=== PATIENT | male | born 1970 | race Caucasian/White ===

== ENCOUNTER 2016-11-06 09:31 | Day surgery (SDC) | payer OTHER ==
[2016-11-06] VITALS (11 sets, daily range): BP systolic 115–138; BP diastolic 67–86; PULSE 65–81; RESP 12–16; O2SAT 92–99
[~2016-11-06] VITALS: Ht 188 cm; Wt 107.1 kg
[2016-11-06] MEDS: Lactated Ringer's 1,000 ML IV SCH ×2 (05:32→11:05)
[~2016-11-06 09:31] MED LIST: CeFAZolin 2 Gm/50 mL D5W IV Premix IV ONE
[2016-11-06] MEDS ORDERED: MetoCLOpramide 5 mg/mL 2 mL Inj ONE (09:32)
[2016-11-06] MEDS ORDERED: Propofol 10,000 mCg/mL 20 mL Inj ONE (09:32)
[2016-11-06] MEDS ORDERED: fentaNYL-PF 50 mCg/mL 2 mL Inj ONE (09:32)
[2016-11-06] MEDS ORDERED: Ondansetron 2 mg/mL 2 mL Inj ONE (09:32)
[2016-11-06] MEDS ORDERED: EPHEDrine/NS 5 mg/mL 5 mL Syringe ONE (09:32)
[2016-11-06] MEDS ORDERED: Dexamethasone 4 mg/mL Inj ONE (09:32)
[2016-11-06] MEDS ORDERED: Lactated Ringer's 1,000 ML IV SCH (12:02)
[2016-11-06] MEDS ORDERED: Lactated Ringer's 500 ML IV PRN (12:02)
--- NOTE | 2016-11-06 12:02 | PCM.HPANE ---
Patient Data Surgeon Admitting Provider: Attending Provider:Ish Chavez MD Primary Care Physician:Rory Martinez MD Other Provider:[facility] Reason for Visit Left Knee Medial Meniscal Tear Ht/WT & BMI Height (Feet): 6 Height (Inches): 3 Weight (Kilograms): 114.31 Body Mass Index 31.00 Allergies Coded Allergies: No Known Allergies (Unverified , 10/31/16) Past Anesthesia History Anesthesia History: Denies:: Abnormal Airway, Anesthesia Reactions, Difficult Intubation, Fam Anesthesia Reaction Diabetes History Hx Diabetes?: No MRSA MRSA: No Medications Hypertension Medication: No Home Meds Incl Beta Saud: No No Active Prescriptions or Reported Meds History HEENT History: Denies:: Abnormal Airway Cataracts Difficult Intubation Dysphagia Glaucoma Hearing Problem Sinus Problem TMJ Cardiovascular History: Denies:: AICD Abdominal Aortic Aneurism Atrial Fibrillation Chest Pain Congestive Heart Failure Coronary Artery Disease Edema Heart Murmur Hypertension Irregular Heartbeat Pacemaker Peripheral Vascular Rheumatic Fever Thrombophlebitis Valvular Heart Disease Hx of Respiratory Problem?: No Respiratory History: Denies:: Asthma COPD Emphysema Pneumonia (hx of bronchitis- not pneumonia) Tuberculosis Use of C-PAP Machine Use of Inhalers / NEBS Hx Neurologic Problems?: No Neurological History: Denies:: Alzheimer's Disease CVA Dizziness Headaches Multiple Sclerosis Parkinson's Disease Seizures TIA Hx of GI Problems?: No Gastrointestinal History: Denies:: Cirrhosis Gall Bladder Disease Gastroesphageal Reflux Heartburn Hepatitis Hiatal Hernia Liver Disease Rectal Bleeding Hx of Problems?: No Genitourinary History: Denies:: Kidney Stones Urinary Tract Infection Male Hx: Denies:: Prostate Problems Scrotal Mass Testicular Surgery Skin History: Denies:: History Skin Disorders? Pressure Ulcers Hx Musculoskeletal Problems?: Yes Musculoskeletal History: Positive for:: Musculoskeletal Trauma (left knee current admission problem) Osteoarthritis Denies:: Back Injury Degenerative Joint Fibromyalgia Joint Replacement Myasthenia Gravis Systemic Lupus Hx of Psycho/Social Problems?: No Psycho Social History: Denies:: Anxiety Hx Depression Hx Surgeries?: No (no prior surgery) Hx Any Other Health Problems?: Yes Other History: Denies:: Cancer Thyroid Disease History Blood Transfusions: Positive for:: Accept Blood Products? Denies:: Blood Transfusions Hx Diabetes: No Hx Alcohol Use: NoHx Substance Use: NoHave You Smoked inLast 12 mo: No Stop/Bang S-Snoring: Do You Snore Loudly: No T-Tired: feel tired, fatigued: No O-Obsered: Observed not breath: Yes P-Blood Pressure: treated: No B- Body Mass Index > 35 kg/m2: No A- Age over 50: No N- Neck Large Circumference: No G- Gender Male: Yes TATIANNA Total Score: 2 Risk Assessment Category Category 1A: Patient has history of documented sleep apnea, and HAS NOT received any narcotic, sedative or anesthesia administration during this stay. Category 1B: Patient has history of documented sleep apnea, and HAS received any narcotic , sedative or anesthesia administration during this stay Category 2: Patient has SUSPECTED Obstructive Sleep Apnea, and HAS received any narcotic , sedative or anesthesia administration during this stay. Category 3: Patient has SUSPECTED Obstructive Sleep Apnea and HAS NOT received narcotic, sedative or anesthesia administration during this stay. Category 4: Outpatient in Procedural Areas with known sleep apnea or who screen positive for High Risk via the STOP/BANG questionnaire. Exam Exam General Appearance: Alert, Oriented X3, Cooperative, No Acute Distress HEENT/AIRWAY: MP 2 Lungs: Clear to Auscultation Heart: Exam Unremarkable Plan Impression Patient chart reviewed, patient interviewed and anesthestic plan with risks, benefits, and alternatives discussed, and informed consent obtained. ASA Physical Status: ASA2 Mod Systemic Disease Anesthetic Plan: GA Bene/Risks/Altern/Consents: Yes HP Complete Prior to Induction: Yes Jay Jay Bang MD Nov 05, 2016 15:40
[2016-11-06] MEDS ORDERED: Lidocaine 2%-Epi 1:100,000 20 mL Inj INFILTRATE ONE (12:04)
[2016-11-06] MEDS ORDERED: MethylprednisoLONE Depot 40 mg/mL Inj ARTICULAR ONE (12:04)
[2016-11-06] MEDS ORDERED: Phenylephrine 10,000 mCg/mL Inj IVPUSH PRN (12:05)
[2016-11-06] MEDS ORDERED: EPHEDrine Sulfate 50 mg/mL Inj IVPUSH PRN (12:05)
[2016-11-06] MEDS ORDERED: HYDROmorphone 1 mg/mL Inj IVPUSH PRN (12:05)
[2016-11-06] MEDS ORDERED: Ondansetron 2 mg/mL 2 mL Inj IVPUSH PRN (12:05)
[2016-11-06] MEDS ORDERED: fentaNYL-PF 50 mCg/mL 2 mL Inj IVPUSH PRN (12:05)
[2016-11-06] MEDS ORDERED: MetoCLOpramide 5 mg/mL 2 mL Inj IVPUSH PRN (12:05)
[2016-11-06] MEDS ORDERED: Dexamethasone 4 mg/mL Inj IVPUSH PRN (12:05)
[2016-11-06] MEDS ORDERED: Lactated Ringer's 1,000 ML IV ONE (12:19)
[2016-11-06] MEDS ORDERED: HYDROcodone-APAP 5-325 mg Tablet PO PRN (12:30)
--- NOTE | 2016-11-06 12:34 | PCM.ORTHOB ---
Immediate Operative Note Date of Service: Nov 06, 2016 Pre Operative Diagnosis Left knee degenerative medial meniscal tear Post Operative Diagnosis Same Procedure Left knee arthroscopic partial medial meniscectomy Surgeon Surgeon: Ish Chavez MD Assistants: None Findings Left knee medial compartment complex, degenerative tear of the posterior horn of the medial meniscus extending to the junction of the body and posterior horn. 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 The anterior cruciate ligament appeared partially torn with regard to anterior most fibers. The majority of the structure however was intact and stable to probing. The lateral compartment was remarkable for diffuse grade 1-2 chondromalacia on both sides of the joint affecting the weightbearing surface lateral femoral condyle and tibial articular surface. No loose bodies were noted in the medial or lateral gutters. The patellofemoral compartment was remarkable for diffuse grade 1-2 chondromalacia affecting the majority of the patellar undersurface. Grafts, Implants: None Complications There were no periprocedural complications identified. Condition Stable Anesthetic Administered: GA Drains: None Catheters: None Output, Estimated Blood Loss: 1 Blood Admin during surgery: No Surgical Cast or Splint: None Additional Information Tourniquet time 30 minutes Surgical Specimen Removed: No Surgical Specimen sent to Path: No Post Operative Plan The patient will be discharged from daycare surgery when protocol is met. The patient may weight-bear as tolerated through his left lower extremity beginning postop day #1, but should use crutches or cane until any limp resolves. Patient will restart his knee exercise program postop day 1. The patient will be seen in the office for routine wound check on her after postop day #5. The patient will be seen for suture removal on or after postoperative day #12. The patient should be able to resume light activities of daily living by that time. Ish Chavez MD Nov 06, 2016 12:34
--- NOTE | 2016-11-06 12:39 | PCM.ORTHOP ---
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 The patient injured his left knee at work 07/09/2016 and has been bothered by sharp catching anteromedial left knee pain with twisting, turning and loaded knee squatting type activities. Preoperative exam of the patient's left knee reveals medial joint line tenderness and a positive Mirza sign with otherwise near full and stable knee range of motion. Preoperative MRI of the patient's left knee reveals a tear of the posterior horn of medial meniscus and partial thickness anterior cruciate ligament tear as well as early degenerative changes. The patient has not gotten relief of his knee symptoms through activity modification, and appropriate attempt at knee rehabilitation and the use of anti-inflammatory agents. The patient presents today for left knee arthroscopic partial medial meniscectomy. Findings Left knee medial compartment complex, degenerative tear of the posterior horn of the medial meniscus extending to the junction of the body and posterior horn. 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 The anterior cruciate ligament appeared partially torn with regard to anterior most fibers. The majority of the structure however was intact and stable to probing. The lateral compartment was remarkable for diffuse grade 1-2 chondromalacia on both sides of the joint affecting the weightbearing surface lateral femoral condyle and tibial articular surface. No loose bodies were noted in the medial or lateral gutters. The patellofemoral compartment was remarkable for diffuse grade 1-2 chondromalacia affecting the majority of the patellar undersurface. Details of Procedure The patient was brought to the OR and given a general anesthetic. He is placed in a supine position and tourniquet placed high about the left thigh. Left lower extremity was prepped and draped in usual sterile fashion tourniquet was inflated to 250 mmHg. Two infrapatellar arthroscopic portals were placed, one medial and one lateral for the arthroscope and instruments. We instilled lactated Ringer's with epinephrine and went directly to the medial compartment. We confirmed the presence of a complex and unstable tear of the posterior horn of the medial meniscus extending from the junction of the body and posterior horn through the posterior horn. Used a combination of arthroscopic basket biting forceps and arthroscopic shaver to debride the meniscal tear back to a stable base. We noted early degenerative changes with diffuse grade 1-2 chondromalacia on both sides of the joint. We explored the rest of the knee. We found the anterior cruciate ligament to have the appearance of a chronically , partially torn ligament affecting the anterior fibers. The majority of the anterior cruciate ligament however was intact and stable to probing. We reviewed the lateral compartment. We found diffuse grade 1-2 chondromalacia on both sides of the joint affecting the weightbearing surfaces. Lateral meniscus was intact and stable to probing. The medial and lateral gutters were reviewed and found to be free of loose bodies. Patellofemoral compartment was reviewed and found to have diffuse grade 1-2 chondromalacia primarily affecting the majority of the patellar undersurface. The knee was thoroughly irrigated and the arthroscope and instruments removed. The knee was filled with 30 mL of 2% lidocaine with epinephrine and 40 mg of Depo-Medrol. The arthroscopic portal sites were closed with interrupted 4-0 nylon sutures. The wounds are dressed with Xeroform and dry gauze dressings. The tourniquet was deflated and the patient was taken back to PACU in stable and satisfactory condition. There are no complications. Patient tolerated the procedure well. Grafts, Implants: None Complications There were no periprocedural complications identified. Condition Stable Anesthetic Administered: GA Drains: None Catheters: None Output, Estimated Blood Loss: 1 Blood Admin during surgery: No Surgical Cast or Splint: None Addtional Information Tourniquet time 30 minutes Surgical Specimen Removed: No Specimen sent to Pathology: No Post Operative Plan The patient will be discharged from daycare surgery when protocol is met. The patient may weight-bear as tolerated through his left lower extremity beginning postop day #1, but should use crutches or cane until any limp resolves. Patient will restart his knee exercise program postop day 1. The patient will be seen in the office for routine wound check on her after postop day #5. The patient will be seen for suture removal on or after postoperative day #12. The patient should be able to resume light activities of daily living by that time. copies to: Rory Martinez MD; Ish Chavez MD, Michael G.E MD Nov 06, 2016 12:39
--- NOTE | 2016-11-06 12:48 | PCM.ANEP2 ---
Post Anesthesia Evaluation ASA/CMS Post Anesthesia VS in Patient's Normal Range?: Yes Resp Stable; Airway Patent?: Yes CV Function & Hydration Stable: Yes Mental Status Recovered?: Yes Pain control Satisfactory?: Yes N/V Control Satisfactory?: Yes Jay Jay Bang MD Nov 06, 2016 12:48
--- NOTE | 2016-11-06 12:48 | PCM.ANEP1 ---
Post Anesthesia Phase 1 PACU Phase 1 Assessment Date of Service: Nov 06, 2016 Vital Signs Vital Signs Date Time Temp Pulse Resp B/P Pulse Ox O2 Delivery O2 Flow Rate FiO2 11/06/16 12:45 36.4 70 12 132/70 98 Nasal Cannula 2 11/06/16 12:35 73 12 131/70 96 Nasal Cannula 2 11/06/16 12:30 69 12 122/68 94 Nasal Cannula 2 11/06/16 12:25 71 12 130/75 94 Nasal Cannula 2 11/06/16 12:20 36.1 81 13 125/68 92 Room Air 11/06/16 10:09 36.3 65 16 130/81 98 Room Air Anesthetic Administered: GA Level of Alertness: Sleeping, hard to arouse MANN's with Equal Strength: Yes Pain: No Nausea or Vomiting: No Oxygen Delivery: Room Air Lungs: Clear to Auscultation Jay Jay Bang MD Nov 06, 2016 12:48
== END 2016-11-06 23:59 | disposition home or self-care (01) ==
LOC: SAS 09:31
PROVIDERS: ATTEND Orthopaedic Surgery
DX: M23.322 Other meniscus derangements, posterior horn of medial meniscus, left knee (principal); M22.42 Chondromalacia patellae, left knee; W18.30XA Fall on same level, unspecified, initial encounter; Y92.513 Shop (commercial) as the place of occurrence of the external cause; Y99.0 Civilian activity done for income or pay; X50.0XXA Overexertion from strenuous movement or load, initial encounter; Z79.1 Long term (current) use of non-steroidal anti-inflammatories (NSAID)
CPT/HCPCS: 29881; J0690; J1030; J1100; J2405; J2765; J7120